=== PATIENT | female | born 1995 | race African-American/Black ===

== ENCOUNTER 2016-06-30 00:02 | Inpatient (IN) | payer OTHER ==
--- NOTE | ~2016-06-30 | DS ---
Unit #: [id number] #: [id number] Patient: SHANI PINEDA [id number] [facility] [address] [place] [address] [id number] MR#: [id number] NAME: SHANI PINEDA ROOM: P256 Age: 21 Sex: F Admission Date: 06/30/2016 : 1995 Discharge Date: 07/02/2016 Attending Physician: Domo Hernandez M.D. Primary Care Physician: Alysia Avina DISCHARGE SUMMARY REASON FOR ADMISSION Depression, suicidal ideation, overdose. DIAGNOSTIC STUDIES LABORATORY DATA: Unremarkable. HOSPITAL COURSE The patient was admitted to inpatient unit on June 30 and discharged on 07/02/2016. The patient was transferred from [facility]. The patient responded well with the above modalities of treatment. Maintained safe behavior. Denied any suicidal or homicidal ideation. The patient was subsequently discharged with a plan to follow up in outpatient program. DISCHARGE MEDICATIONS None. DISCHARGE DIAGNOSES PSYCHIATRIC: Mood disorder not otherwise specified, F32.9. Cannabis abuse, moderate, F12.20 SECONDARY: Deferred. MEDICAL: History of genital herpes. STRESSORS: Psychosocial stressor. FOLLOWUP CARE The patient to follow up in outpatient clinic as per social contact worker. CONDITION ON DISCHARGE The patient pleasant, cooperative. Denied any psychotic symptom or any suicidal ideation. PROGNOSIS Guarded. DIET AND ACTIVITY As tolerated. Dictated by... May Banks/humble Unit #: [id number] #: [id number] Patient: SHANI PINEDA TD: 07/04/2016 08:18 JOB #: [id number] DISCHARGE SUMMARY Page 1 of 1 X Domo Hernandez MD X DISCHARGE SUMMARY
--- NOTE | ~2016-06-30 | PN ---
Unit #: [id number] #: [id number] Patient: SHANI PINEDA [id number] [facility] [address] [place] [address] [id number] MR#: [id number] NAME: SHANI PINEDA ROOM: P256 Age: 21 Sex: F Admission Date: 06/30/2016 : 1995 Attending Physician: Domo Hernandez M.D. Admitting Physician: Domo Hernandez M.D. Primary Care Physician: Alysia CAMACHO PROGRESS NOTES DATE 07/01/2016 DISCUSSION Ms. Pineda is a 21-year-old female, seen on 07/01/2016. The patient interviewed, chart reviewed, and obtained information from the nursing staff. The patient was compliant and cooperative. Vital signs, 98.8, 86, 18, and 102/52. The patient seclusive, isolative, flat affect, sad and dysphoric mood. The patient compliant with the treatment. REVIEW OF SYSTEMS Complete review of systems unremarkable. MENTAL STATUS EXAMINATION General appearance: Patient dressed casually. Attention span and concentration, fair. Oriented to place and person. Mood and affect, sad and dysphoric. Speech, monotone. Thought process, concrete. The patient denied any thoughts of harming self or others. Recent and remote memory, poor. Insight and judgment, poor. DIAGNOSES 1. Mood disorder, NOS. 2. History of substance abuse. ASSESSMENT/PLAN Advised to continue with the current medication and therapeutic protocol, and if needed consider adjustment of medication. The patient is currently on Desyrel 50 mg at bedtime. Plan to consider medication such as Celexa, if needed consider further adjustment of medication. Dictated by... May Banks/lulu Unit #: [id number] #: [id number] Patient: SHANI PINEDA TD: 07/03/2016 05:48 JOB #: [id number] [facility] PROGRESS NOTES Page 1 of 1 X Domo Hernandez MD PROGRESS NOTE
--- NOTE | ~2016-06-30 | PA ---
Unit #: [id number] #: [id number] Patient: SHANI MEJIA [id number] [facility] [address] [place] [address] [id number] MR#: [id number] NAME: SHANI MEJIA ROOM: P256 Age: 21 Sex: F Admission Date: 06/30/2016 : 1995 Date of Assessment: Attending Physician: Domo Hernandez M.D. Admitting Physician: Domo Hernandez M.D. Primary Care Physician: Alysia Avina PSYCHIATRIC ASSESSMENT INFORMANTS The patient reliability, fair informant and chart reliability, good. CHIEF COMPLAINT Depression and anxiety. HISTORY OF PRESENT ILLNESS Ms. Mejia is a 21-year-old female, seen on 2-Quin, who presented with the above-mentioned complaint. The patient was on 72-hour hold, presented at the [facility] after she was brought to their hospital emergency room after overdosing on 13 Lexapro pills. The patient reported that she was under a lot of stress. The patient reported increased life stressor, financial problem, and relationship problem. The patient was able to contract for safety at this time, but admitted intentional overdose and increased anxiety and depression. The patient reported history of marijuana use to decrease anxiety. The patient denied any homicidal ideation or any auditory or visual hallucination. The patient needing inpatient admission at this time for psychiatric stabilization. PAST PSYCHIATRIC HISTORY Remarkable for history of outpatient treatment. No history of any suicide attempt or any inpatient treatment prior to this. FAMILY HISTORY AND SOCIAL HISTORY The patient has a son, 6-year-old. Good support from family. History of suicide attempt in uncle. No known history of any abuse. MEDICAL HISTORY Remarkable for history of genital herpes. Musculoskeletal; muscle strength and tone, no atrophy or abnormal movement. Gait normal. MEDICATION HISTORY Lexapro 10 mg daily. ALLERGIES No known drug allergies. SUBSTANCE ABUSE HISTORY The patient reported tobacco use, age of onset 16; alcohol, age of onset 20; and marijuana, age of onset 16. Longest period of sobriety 9 months. Last period of sobriety in 2015. The patient denied any history of blackout, HIV, hepatitis, withdrawal symptoms, or any IV drug abuse. Unit #: [id number] #: [id number] Patient: SHANI MEJIA REVIEW OF SYSTEMS HEENT: Eyes, clear. Ears, nose, mouth, and throat; clear. CARDIOVASCULAR: Unremarkable. RESPIRATORY: Unremarkable. GI: Unremarkable. : Unremarkable. SKIN: Unremarkable. LYMPH NODE: Unremarkable. NEUROLOGIC: Unremarkable. ENDOCRINE: Unremarkable. HEMATOLOGIC: Unremarkable. ALLERGIC/IMMUNOLOGIC: Unremarkable. MUSCULOSKELETAL: Muscle strength and tone, no atrophy or abnormal movement. Gait normal. MENTAL STATUS EXAMINATION CONSTITUTIONAL: Temperature 98.7, heart rate 87, respiratory rate 16, oxygen saturation 97%, and blood pressure 117/78. Height 5 feet 2 inches and weight 108 pounds. GENERAL APPEARANCE: The patient dressed casually. The patient did not show any facial deformity. MUSCULOSKELETAL: Please see above. PSYCHIATRIC EXAMINATION Description of speech; regular rate, normal volume, normal articulation, and coherent. Description of thought process, goal directed. Description of association, intact. Description of abnormal psychotic thinking; the patient denied any hallucination or delusions, but depression, suicidal ideation, and suicide attempt. Description of the patient's judgment: Concerning everyday activity, poor. Social situation, poor. Concerning psychiatric condition, poor. Complete mental status examination; oriented in time, place, and person. Recent and remote memory, fair. Attention span and concentration, fair. Language, able to name object and repeat phrases. Fund of knowledge, aware of current event and passive vocabulary intact. Mood and affect, sad and dysphoric. Insight and judgment, fair to poor. ASSETS AND LIABILITIES Assets, the patient is articulate and able to take care of her ADL. Liability, history of depression and substance abuse. ADMITTING DIAGNOSES Psychiatric: Major depressive disorder, recurrent, severe, F33.3 and anxiety disorder, not otherwise specified; and cannabis abuse, moderate, F12.20. Secondary diagnosis: Deferred. Medical diagnosis: History of genital herpes. Stressors: Psychosocial stressors. PSYCHIATRIC PLAN AND TREATMENT GOAL AND DISCHARGE PLAN 1. Advised to admit the patient on the inpatient unit. Provide safe, supportive, and structured environment. 2. Ordered labs; CBC, CMP, UA, UDS, and test. Unit #: [id number] #: [id number] Patient: SHANI MEJIA 3. Advised Desyrel 50 mg at bedtime for sleep. Advised to hold Lexapro. Consider alternative medication. The patient to attend all the programing, group therapy, individual therapy, and medication management. 4. I advised SP1 precaution. TREATMENT GOAL To attain euthymic mood, gain insight into her problem, and learn coping skills. DISCHARGE PLAN Plan to stabilize the patient and consider followup in outpatient program. ESTIMATED LENGTH OF STAY 3 to 5 days. Dictated by... Domo Hernandez M.D. ARMOND/malaika TD: 06/30/2016 18:35 JOB #: [id number] PSYCHIATRIC ASSESSMENT Page 1 of 1 X Domo Hernandez MD X PSYCHIATRIC ASSESSMENT
--- NOTE | ~2016-06-30 | HP ---
Unit #: [id number] #: [id number] Patient: JENNIFER PINEDA [id number] [facility] [address] [place] [address] [id number] MR#: [id number] NAME: JENNIFER PINEDA ROOM: P256 Age: 21 Sex: F Admission Date: 06/30/2016 : 1995 Attending Physician: Domo Hernandez M.D. Admitting Physician: Domo Hernandez M.D. Primary Care Physician: Alysia Avina HISTORY AND PHYSICAL HISTORY OF PRESENT ILLNESS Jennifer is a 21 year old admitted to [address] [place] [address] with depression and verbalizing wanting to hurt herself. PAST MEDICAL HISTORY History of genital herpes. PAST SURGICAL HISTORY x1. ALLERGIES No known drug allergies. SOCIAL HISTORY Smokes one pack per day. Drinks alcohol socially. Admits to using marijuana on a daily basis. FAMILY HISTORY Medically noncontributory. REVIEW OF SYSTEMS CONSTITUTIONAL: No fever or chills. HEENT: Denies any sore throat, ear pain or runny nose. CARDIOVASCULAR: Denies chest pain, irregular heart rhythm or palpitations. CHEST: Denies shortness of breath or cough. No hemoptysis. GASTROINTESTINAL: Denies nausea, vomiting, diarrhea or chronic constipation. ENDOCRINE: Denies history of increased thirst or urination. No recent significant weight loss or gain. GENITOURINARY: Denies dysuria, frequency, or hematuria. SKIN: Denies any rashes. HEMATOLOGIC: Denies history of increased bleeding or bruising. MUSCULOSKELETAL: Denies any hot, swollen joints. No generalized muscle pain. NEUROLOGIC: Denies problems with vision or speech. No frequent, severe headaches. No numbness, tingling or weakness in any extremities. Denies loss of bladder or bowel control. CURRENT MEDICATIONS 1. Desyrel 50 mg q.h.s. 2. Nicotine patch 7 mg q. day. 3. Zovirax 400 mg b.i.d. 4. Milk of Magnesia p.r.n. Unit #: [id number] #: [id number] Patient: JENNIFER PINEDA 5. Maalox p.r.n. 6. Tylenol p.r.n. PHYSICAL EXAMINATION GENERAL: Alert, well nourished. No apparent distress. VITAL SIGNS: Blood pressure 117/78, heart rate 86, respirations 16, and temperature 98.6. WEIGHT: 108. HEIGHT: 5 feet 2 inches. SKIN: Warm and dry without rash or lesion. HEENT: Normocephalic. TMs not viewed. Oral and nasal passages clear. Conjunctivae clear. PERRLA. EOMs intact. NECK: Supple without lymphadenopathy or thyromegaly. HEART: Regular rate and rhythm without murmur. LUNGS: Clear. ABDOMEN: Soft, nontender. : Not done. EXTREMITIES: No evidence of cyanosis, clubbing or edema. Moves all without focal deficit. NEUROLOGICAL: Grossly within normal limits. Cranial Nerves: II: Visual sun are intact. III, IV AND : Extraocular movements are intact. Pupils are equal, round and reactive to light. V: Facial sensation is grossly normal. VII: Facial movements and expression are normal. VIII: Auditory acuity grossly intact. IX, X: Uvula is midline. Phonation is normal. XI: Patient shrugs shoulders and turns head normally. XII: Tongue protrudes in the midline. Sensory and Motor Function: Sensory and motor sensation is grossly normal. Motor: moves all extremities well. Coordination: Gait is normal. Deep Tendon Reflexes: Intact. IMPRESSION Psychiatric admission. RECOMMENDATIONS PSYCHIATRIC: Per psychiatrist. MEDICAL: I see no contraindication to participate in this facility's activities. MEDICAL PROGNOSIS Good. MEDICAL CONDITION Stable. Dictated by... Jeny Ambriz P.A.-C. for May Grayson/humble TD: 06/30/2016 15:16 JOB #: [id number] Unit #: [id number] #: [id number] Patient: JENNIFER PINEDA HISTORY AND PHYSICAL Page 1 of 1 X Jeny Ambriz HISTORY AND PHYSICAL
== END 2016-07-02 11:38 | disposition home or self-care (01) | DRG 885 ==
LOC: P2L 00:02
DX: F33.2 Major depressive disorder, recurrent severe without psychotic features (principal); R45.851 Suicidal ideations; F39 Unspecified mood [affective] disorder; F41.9 Anxiety disorder, unspecified; F12.20 Cannabis dependence, uncomplicated; Z81.8 Family history of other mental and behavioral disorders; F17.210 Nicotine dependence, cigarettes, uncomplicated; Y92.009 Unspecified place in unspecified non-institutional (private) residence as the place of occurrence of the external cause; T43.222D Poisoning by selective serotonin reuptake inhibitors, intentional self-harm, subsequent encounter